=== PATIENT | female | born 1980 | race Caucasian/White ===

== ENCOUNTER 2016-11-10 01:30 | Emergency (ER) | payer OTHER ==
[2016-11-10 03:21] LABS: CALCIUM 8.2 mg/dL (8.5-10.1); CARBON DIOXIDE 18.3 mmol/L (21-32); CHLORIDE SERUM 100 mmol/L (98-107); CREATININE SERUM 0.7 mg/dL (0.6-1.0); GFR1 > 60 mL/min; POTASSIUM SERUM 3.4 mmol/L (3.5-5.1); SODIUM SERUM 136 mmol/L (136-145)
[2016-11-10 03:23] LABS: BASOPHIL % 0.4 % (0-2); GLUCOSE SERUM 150 mg/dL (74-106); PLATELET COUNT 278 x10^3mcL (130-400)
[2016-11-10 03:27] LABS: ALBUMIN 3.1 g/dL (3.4-5.0); ALKALINE PHOSPHATASE 76 U/L (46-116); AMYLASE 56 U/L (25-115); BILIRUBIN TOTAL 0.4 mg/dL (0.20-1.00); TOTAL PROTEIN, SERUM 6.8 g/dL (6.4-8.2)
[2016-11-10 03:28] LABS: LIPASE 156 IU/L (73-393)
[2016-11-10 03:36] LABS: ALT/SGPT 14 U/L (14-59); AST/SGOT 18 U/L (15-37)
[2016-11-10 05:04] VITALS: BP 117/70
== END 2016-11-10 05:05 | disposition home or self-care (01) ==
LOC: ED 01:30
PROVIDERS: Emergency Medicine
DX: K80.20 Calculus of gallbladder without cholecystitis without obstruction (principal); R11.10 Vomiting, unspecified
CPT/HCPCS: 83880; J1885; J2405; J7030; Q0092

== ENCOUNTER 2016-11-15 11:06 | Inpatient (IN) | payer OTHER ==
[~2016-11-15] VITALS: Ht 160 cm; Wt 99.5 kg
[2016-11-15 13:22] LABS: BASOPHIL % 0.5 % (0-2); PLATELET COUNT 266 x10^3mcL (130-400); RED CELL DISTRIBUTION WIDTH 13.3 % (11.5-14.5)
[2016-11-15 13:40] LABS: CALCIUM 8.6 mg/dL (8.5-10.1); CARBON DIOXIDE 25.8 mmol/L (21-32); CHLORIDE SERUM 104 mmol/L (98-107); CREATININE SERUM 0.7 mg/dL (0.6-1.0); GFR1 > 60 mL/min; GLUCOSE SERUM 104 mg/dL (74-106); POTASSIUM SERUM 3.8 mmol/L (3.5-5.1); SODIUM SERUM 140 mmol/L (136-145)
[2016-11-15 13:43] LABS: ALKALINE PHOSPHATASE 72 U/L (46-116); ALT/SGPT 26 U/L (14-59); AMYLASE 62 U/L (25-115); AST/SGOT 6 U/L (15-37); BILIRUBIN TOTAL 0.3 mg/dL (0.20-1.00); LIPASE 217 IU/L (73-393); TOTAL PROTEIN, SERUM 6.9 g/dL (6.4-8.2)
[2016-11-15 13:56] LABS: ALBUMIN 3.1 g/dL (3.4-5.0)
[2016-11-15 18:06] VITALS: BP 117/68
[2016-11-15 18:11] VITALS: Ht 160 cm; Wt 99.5 kg
[2016-11-15 20:56] VITALS: BP 106/69
[2016-11-16 05:26] VITALS: BP 107/61
[2016-11-16 06:06] LABS: BASOPHIL % 0.5 % (0-2); PLATELET COUNT 238 x10^3mcL (130-400); RED CELL DISTRIBUTION WIDTH 13.4 % (11.5-14.5)
[2016-11-16 06:29] LABS: ALKALINE PHOSPHATASE 60 U/L (46-116); ALT/SGPT 26 U/L (14-59); AST/SGOT 15 U/L (15-37); BILIRUBIN DIRECT 0.07 mg/dL (0.0-0.2); BILIRUBIN TOTAL 0.3 mg/dL (0.20-1.00); CALCIUM 8.2 mg/dL (8.5-10.1); CHLORIDE SERUM 104 mmol/L (98-107); CREATININE SERUM 0.7 mg/dL (0.6-1.0); GFR1 > 60 mL/min; GLUCOSE SERUM 101 mg/dL (74-106); MAGNESIUM 1.8 mg/dL (1.8-2.4); POTASSIUM SERUM 3.8 mmol/L (3.5-5.1); SODIUM SERUM 141 mmol/L (136-145)
[2016-11-16 06:33] LABS: ALBUMIN 2.7 g/dL (3.4-5.0)
[2016-11-16 09:34] VITALS: BP 107/64
[2016-11-16 13:55] VITALS: BP 109/60
[2016-11-16 16:54] VITALS: BP 98/56
[2016-11-16 19:30] VITALS: BP 114/70
[2016-11-17 06:18] VITALS: BP 110/70
[2016-11-17 06:22] LABS: CALCIUM 8.5 mg/dL (8.5-10.1); CARBON DIOXIDE 26.5 mmol/L (21-32); CHLORIDE SERUM 108 mmol/L (98-107); CREATININE SERUM 0.7 mg/dL (0.6-1.0); GFR1 > 60 mL/min; GLUCOSE SERUM 99 mg/dL (74-106); MAGNESIUM 2.1 mg/dL (1.8-2.4); POTASSIUM SERUM 4.3 mmol/L (3.5-5.1); SODIUM SERUM 143 mmol/L (136-145)
[2016-11-17 06:49] LABS: BASOPHIL % 0.5 % (0-2); PLATELET COUNT 256 x10^3mcL (130-400)
[2016-11-17 10:58] VITALS: BP 113/55
[2016-11-17 14:30] VITALS: BP 113/58
[2016-11-17 15:24] VITALS: BP 101/58
[2016-11-17 17:20] VITALS: BP 105/64
[2016-11-17] MEDS ORDERED: ACETAMINOPHEN-H1 TA1 PO (18:10)
[2016-11-17 21:59] VITALS: BP 103/59
[2016-11-18 06:12] VITALS: BP 111/60
[2016-11-18 08:53] VITALS: BP 111/60
== END 2016-11-18 09:50 | disposition home or self-care (01) | DRG 263 ==
LOC: ED 11:06 → DU 16:26
PROVIDERS: Emergency Medicine Emergency Medical Services; Surgery; ADMIT Internal Medicine Pulmonary Disease
PROC: 8E0W4CZ Robotic Assisted Procedure of Trunk Region, Percutaneous Endoscopic Approach (ICD-10-PCS; 2016-11-17)
PROC: 0FT44ZZ Resection of Gallbladder, Percutaneous Endoscopic Approach (ICD-10-PCS; principal; 2016-11-17 09:30)
DX: K80.00 Calculus of gallbladder with acute cholecystitis without obstruction (principal); E86.0 Dehydration; Z88.1 Allergy status to other antibiotic agents
CPT/HCPCS: 82962; 83880; 94150; J2175; J2250; J2270; J2405; J2543; J3010; J3475; J3490; J7030; J7042; Q0092

== ENCOUNTER 2018-09-19 19:16 | Emergency (ER) | payer OTHER ==
[~2018-09-19] VITALS: Ht 160 cm; Wt 93.4 kg
[~2018-09-19 19:16] MED LIST: ACETAMINOPHEN-H1 TA1 PO
[2018-09-19 19:21] VITALS: BP 141/80; Ht 160 cm; Wt 93.4 kg
== END 2018-09-19 20:00 | disposition home or self-care (01) ==
LOC: ED 19:16
DX: K08.89 Other specified disorders of teeth and supporting structures (principal); F32.9 Major depressive disorder, single episode, unspecified; F41.9 Anxiety disorder, unspecified; G89.29 Other chronic pain; Z88.1 Allergy status to other antibiotic agents; Z98.818 Other dental procedure status
CPT/HCPCS: J1885

== ENCOUNTER 2019-05-04 09:08 | Emergency (ER) | payer OTHER ==
[~2019-05-04] VITALS: Ht 160 cm; Wt 96.6 kg
[2019-05-04 09:24] VITALS: Ht 160 cm; Wt 96.6 kg
[2019-05-04 13:12] VITALS: BP 124/74
== END 2019-05-04 13:12 | disposition home or self-care (01) ==
LOC: ED 09:08
DX: J40 Bronchitis, not specified as acute or chronic (principal); M54.9 Dorsalgia, unspecified; Z88.1 Allergy status to other antibiotic agents